=== PATIENT | female | born 1955 | race African-American/Black ===

== ENCOUNTER 2018-04-10 04:15 | Emergency (ER) | payer BC, OTHER, SELFPAY ==
[2018-04-10 04:36] LABS: #Basophils 0.1 thou/uL (0.0-0.2); #Eosinphils 0.4 thou/uL (0.0-0.7); #Lymphocytes 3.5 thou/uL (1.20-3.40); #Monocytes 0.8 thou/uL (0.11-0.59); #Neutrophils 3.5 thou/uL (1.40-6.50); %Basophils 0.7 % (0.0-1.0); %Eosinophils 4.4 % (0.0-10.0); %Lymphocytes 42.3 % (21.0-51.0); %Monocytes 9.8 % (0.0-10.0); %Neutrophils 42.8 % (42.0-75.0); Hemoglobin 13.1 g/dL (12.0-16.0); Mean Corpuscular HGB CONC 32.1 g/dL (32.0-36.0); Mean Corpuscular Hemoglobin 28.5 pg (27.0-31.0); Mean Corpuscular Volume 88.8 fl (81.0-99.0); Platelet Count 313 thou/uL (130-400); RBC Distribution Width 12.3 % (11.5-14.5); Red Blood Cell (RBC) Count 4.59 mill/uL (4.20-5.40); White Blood Cell (WBC) Count 8.3 thou/uL (4.8-10.8)
[2018-04-10 04:52] LABS: ALT (SGPT) 30 U/L (8-55); AST (SGOT) 41 U/L (5-34); Albumin 4.2 g/dL (3.5-5.0); Alkaline Phosphatase 115 U/L (40-150); Anion Gap 12 mmol/L (10-20); BUN (Urea Nitrogen) 17 mg/dL (9.8-20.1); Bilirubin, Total 0.4 mg/dL (0.2-1.2); Calc. Creatinine Clearance 0 mL/min (70-130); Calcium 9.9 mg/dL (7.8-10.44); Carbon Dioxide 27 mmol/L (22-29); Chloride 104 mmol/L (98-107); Estimated GFR-MDRD 80; Globulin 3.9 g/dL (2.4-3.5); Glucose 105 mg/dL (70-105); Lipase 37 U/L (8-78); Potassium 3.7 mmol/L (3.5-5.1); Protein, Total 8.1 g/dL (6.0-8.3); Sodium 139 mmol/L (136-145)
[2018-04-10 04:55] LABS: CKMB 1.1 ng/mL (0-6.6); Troponin I Less than 0.010 ng/mL (< 0.028)
[2018-04-10] MEDS ORDERED: Fentanyl 100 MCG/2 ML VIAL ONE (05:24)
[2018-04-10] MEDS ORDERED: HYDROcodone/Acetaminophen 5/325 mg Tablet ONE (08:49)
[2018-04-10] MEDS ORDERED: Ondansetron ODT 4 MG TAB ONE (08:49)
--- NOTE | 2018-04-10 09:13 | ULT ---
PRELIMINARY REPORT/[facility]/EMERGENTY AFTER-HOURS PROCEDURE US Abdomen Limited, Right Upper Quadrant CLINICAL HISTORY: 62 years old, female; Pain and signs and symptoms; Nausea and vomiting; Abdominal pain; Epigastric TECHNIQUE: Real-time ultrasound of the right upper quadrant with image documentation. COMPARISON: No relevant prior studies available. FINDINGS: Liver: Liver is mildly enlarged, with the right lobe measuring 18.6 cm in sagittal dimension. No intr ahepatic bile duct dilation. Gallbladder: Multiple echogenic, shadowing foci within the gallbladder, compatible with calcified gal lstones. Gallbladder wall measures 1 mm in thickness. Sonographic Plata's sign was reportedly positi ve. Common bile duct: Common bile duct measures 5 mm in diameter. No stones. No dilation. Pancreas: Normal as visualized. Right kidney: Right kidney is normal in appearance, measuring 10.2 cm in length. No stones. No hydron ephrosis. IMPRESSION: 1. No sonographic evidence of acute right upper abdominal abnormality. 2. Cholelithiasis, without sonographic evidence of acute cholecystitis. 3. Incidental/non-acute findings are described above. Thank you for allowing us to participate in the care of your patient. Dictated and Authenticated by: Jero Whitney MD 04/10/2018 7:36 AM Central Time ([place] & [place]) FINAL REPORT SONOGRAM RIGHT UPPER QUADRANT: DATE: 04/10/18. TIME: Performed on an emergency basis at 0618 hours. HISTORY: Right upper quadrant pain. FINDINGS: Agree with the preliminary report by Dr. Whitney from [facility]. Gallstones are confirmed. N o sonographic evidence of acute obstruction or inflammation. POS: OFF
== END 2018-04-10 09:59 | disposition home or self-care (01) ==
LOC: ERS 04:15
DX: K80.20 Calculus of gallbladder without cholecystitis without obstruction (principal)
CPT/HCPCS: 76705; 80053; 82553; 83690; 84484; 85025; 93005; 96374; J3010; Q0162